=== PATIENT | female | born 1985 | race American Indian/Alaskan Native ===

== ENCOUNTER 2016-07-22 11:21 | Emergency (ER) | payer MEDICAID, OTHER ==
[2016-07-22 13:12] LABS: Basophils % (Auto) 0.2 % (0.0-1.8); Eosinophils % (Auto) 0.2 % (0.0-4.3); Hematocrit 40.7 % (30.3-42.9); Hemoglobin 12.7 gm/dl (10.1-14.3); Mean Corpuscular HGB Conc 31 % (30-34); Mean Corpuscular Hemoglobin 28 pg (28-32); Mean Corpuscular Volume 89 fl (79-97); Platelet Count 227 K/mm3 (140-440); Red Blood Count 4.58 M/mm3 (3.65-5.03); Red Cell Distribution Width 17.5 % (13.2-15.2); White Blood Count 15.1 K/mm3 (4.5-11.0)
[2016-07-22 13:15] LABS: Bilirubin,Urine NEG (Negative); Blood,Urine NEG (Negative); Ketones,Urine 80 mg/dL (Negative); Leukocyte Esterase,Urine NEG (Negative); Mucus,Urine 2+ /HPF; Nitrite,Urine NEG (Negative); Urobilinogen,Urine < 2.0 mg/dL (<2.0)
[2016-07-22 13:20] LABS: Amylase 42 units/L (27-131); Lipase 19 units/L (13-60)
[2016-07-22 13:23] LABS: Anion Gap 21 mmol/L; Blood Urea Nitrogen 9 mg/dL (7-17); Calcium 9.3 mg/dL (8.4-10.2); Carbon Dioxide 22 mmol/L (22-30); Chloride 97.8 mmol/L (98-107); Creatine Kinase 77 units/L (30-135); Glucose 79 mg/dL (65-100); Potassium 4.4 mmol/L (3.6-5.0); Sodium 136 mmol/L (137-145)
[2016-07-22 13:27] LABS: Creatine Kinase MB < 1.0 ng/mL (0.0-4.0)
--- NOTE | 2016-07-22 14:06 | XRay Report ---
ROUTINE CHEST, TWO VIEWS: HISTORY: chest pain. The trachea, heart, mediastinal contour, lung anderson and bony thorax are unremarkable. IMPRESSION: Unremarkable chest x-ray.
[2016-07-22 17:05] LABS: Alanine Aminotransferase 5 units/L (7-56); Albumin 4.3 g/dL (3.9-5); Albumin/Globulin Ratio 1.1 %; Alkaline Phosphatase 87 units/L (35-129); Bilirubin,Total 0.5 mg/dL (0.1-1.2); Total Protein 8.2 g/dL (6.3-8.2)
[2016-07-22 17:11] LABS: Bilirubin,Direct < 0.2 mg/dL (0-0.2); Bilirubin,Indirect 0.3 mg/dL
[2016-07-22] MEDS ORDERED: NACL ONE (18:08)
[2016-07-22] MEDS ORDERED: ZOFRAN IV ONE (18:16)
[2016-07-22] MEDS ORDERED: MORPHINE IV ONE ×2 (18:16→19:29)
[2016-07-22] MEDS ORDERED: TORADOL IV ONE (18:16)
--- NOTE | 2016-07-22 18:26 | Emergency Department Report ---
ED Chest Pain HPI - General Chief Complaint: Chest Pain Stated Complaint: ABD PAIN Time Seen by Provider: 07/22/16 18:15 Source: patient Mode of arrival: Ambulatory Limitations: No Limitations - History of Present Illness Initial Comments: 31-year-old female with no past medical history present to the hospital complaining of right upper quadrant and right-sided lower chest pain since last night. Pain is constant, sharp, and rated 10/10 in intensity. Worse with palpation, movement, and deep inspiration. Patient also complains of a constant nagging pain to her right shoulder. Positive dyspnea on exertion. Patient denies nausea, vomiting, diarrhea, or diaphoresis. She denies other PE risk factors including recent travel, calf tenderness, history of PE/DVT, or control pill use. Patient also denies cough and cold/infectious symptoms. Severity scale (0 -10): 10 - Related Data Home Medications Medication Instructions Recorded Confirmed Last Taken Vit-Fe Fumar-FA [ 1 tab PO QDAY 03/17/16 04/05/16 3 Days Ago Vitamin] 1 TAB Previous Rx's Medication Instructions Recorded Last Taken Type Docusate Sodium [Colace] 100 mg PO BID PRN #60 capsule 04/07/16 Unknown Rx Ferrous Sulfate [Feosol 325 MG tab] 325 mg PO BID #60 tablet 04/07/16 Unknown Rx Allergies Allergy/AdvReac Type Severity Reaction Status Date / Time No Known Allergies Allergy Verified 03/17/16 19:47 VIN score - Vin Score Age > 65: (0) No Aspirin use within the Past 7 Days: (0) No 3 or more CAD Risk Factors: (0) No 2 or more Angina events in past 24 hrs: (0) No Known CAD with more than 50% Stenosis: (0) No Elevated Cardiac Markers: (0) No ST Deviation Greater than 0.5mm: (0) No VIN Score: 0 ED Review of Systems ROS: Stated complaint: ABD PAIN Other details as noted in HPI Comment: All other systems reviewed and negative Other: Constitutional: No fevers chills Eyes: No eye pain visual changes or discharge ENT: No ear pain or throat pain Neck: Denies pain Respiratory: As per HPI Cardiovascular: As per HPI GI: Denies nausea, vomiting, diarrhea, constipation, melena hematochezia : Denies dysuria Musculoskeletal: Denies back pain, joint swelling Skin: Denies rash, lesions, erythema Neurologic: Denies headache, numbness, weakness Psychiatric: Denies suicidal ideation, hallucinations ED Past Medical Hx - Past Medical History Hx Hypertension: No Hx Congestive Heart Failure: No Hx Diabetes: No Hx Deep Vein Thrombosis: No Hx Renal Disease: No Hx Sickle Cell Disease: No Hx Seizures: No Hx Asthma: No Hx COPD: No Hx HIV: No - Surgical History Past Surgical History?: No - Social History Smoking Status: Current Every Day Smoker Substance Use Type: None - Medications Home Medications: Home Medications Medication Instructions Recorded Confirmed Last Taken Type Vit-Fe Fumar-FA [ 1 tab PO QDAY 03/17/16 04/05/16 3 Days Ago History Vitamin] 1 TAB Docusate Sodium [Colace] 100 mg PO BID PRN #60 capsule 04/07/16 Unknown Rx Ferrous Sulfate [Feosol 325 MG tab] 325 mg PO BID #60 tablet 04/07/16 Unknown Rx ED Physical Exam - General Limitations: No Limitations - Other Other exam information: General: No limitations, patient is alert in no acute distress Head exam: Atraumatic, normocephalic Eyes exam: Normal appearance ENT: Moist mucous membrane Neck exam: Normal inspection, full range of motion Respiratory exam: Clear to auscultation bilateral, no wheezes, rales, crackles Cardiovascular: Normal rate and rhythm, normal heart sounds, lower right anterior ribs tenderness Abdomen: Soft, nondistended, and right upper quadrant tenderness, with normal bowel sounds, no rebound, or guarding Extremity: Full range of motion normal inspection no deformity, no calf tenderness or Back: Normal Inspection, full range of motion, no tenderness Neurologic: Alert, oriented x3, cranial nerves intact, no motor or sensory deficit Psychiatric: normal affect, normal mood Skin: Warm, dry, intact ED Course Vital Signs 07/22/16 07/22/16 07/22/16 12:31 17:30 18:40 Temperature 98.7 F 99.2 F Pulse Rate 82 83 Respiratory 18 16 22 Rate Blood Pressure 100/63 109/67 Blood Pressure [Left] O2 Sat by Pulse 100 100 Oximetry 07/22/16 19:30 Temperature 98.4 F Pulse Rate 72 Respiratory 16 Rate Blood Pressure Blood Pressure 104/31 [Left] O2 Sat by Pulse 100 Oximetry - Reevaluation(s) Reevaluation #1: 07/22/16 22:41 I was informed that patient left the department and did not return. I called patient at this time to inform her by her CAT scan results and the need to follow-up for her pulmonary nodules. Also informed her that I had an ultrasound ordered to rule out gallstones given the location of her pain. When I initially saw the patient she was upset due to the long wait. I explained to her that I plan on getting a CAT scan since her d-dimer is elevated to rule out a PE but if negative plan on getting a gallbladder ultrasound due to the location of her pain. Patient was medicated with morphine, Toradol, and Zofran and states she had improvement in symptoms. I did not get to rediscuss her diagnosis and plan prior to leaving the department and she did not that the nurse or the staff know that she was leaving. When I called patient back she was upset due to the long wait and prolonged ED stay and that she is still in pain and we didn't tell her what was wrong with her. She plans to call administration. I told patient that I did not get to finish my ER evaluation and I let her know her CT showed a nodule and she will need outpatient follow- up. I also informed her that she had a pending ultrasound and that I would have managed her with more medications for pain if needed and send her home on pain medication but she left the department without informing anyone. I also informed her that she will likely need her gallbladder evaluated as well she is welcome to return for further evaluation. Then I could not hear the patient on the phone anymore so then I attempted to call back. She would not answer the phone upon call back. 07/22/16 22:44 ED Medical Decision Making - Lab Data Result diagrams: 07/22/16 12:42 07/22/16 12:42 Lab Results 07/22/16 07/22/16 07/22/16 Range/Units 12:42 12:42 12:42 WBC 15.1 H (4.5-11.0) K/mm3 RBC 4.58 (3.65-5.03) M/mm3 Hgb 12.7 (10.1-14.3) gm/dl Hct 40.7 (30.3-42.9) % MCV 89 (79-97) fl MCH 28 (28-32) pg MCHC 31 (30-34) % RDW 17.5 H (13.2-15.2) % Plt Count 227 (140-440) K/mm3 Lymph % (Auto) 11.1 L (13.4-35.0) % [place] % (Auto) 7.8 H (0.0-7.3) % Eos % (Auto) 0.2 (0.0-4.3) % Baso % (Auto) 0.2 (0.0-1.8) % Lymph # 1.7 (1.2-5.4) K/mm3 [place] # 1.2 H (0.0-0.8) K/mm3 Eos # 0.0 (0.0-0.4) K/mm3 Baso # 0.0 (0.0-0.1) K/mm3 Seg Neutrophils % 80.7 H (40.0-70.0) % Seg Neutrophils # 12.2 H (1.8-7.7) K/mm3 D-Dimer (0-234) ng/mlDDU Sodium 136 L (137-145) mmol/L Potassium 4.4 (3.6-5.0) mmol/L Chloride 97.8 L (98-107) mmol/L Carbon Dioxide 22 (22-30) mmol/L Anion Gap 21 mmol/L BUN 9 (7-17) mg/dL Creatinine 0.6 L (0.7-1.2) mg/dL Estimated GFR > 60 ml/min BUN/Creatinine Ratio 15.00 % Glucose 79 (65-100) mg/dL Calcium 9.3 (8.4-10.2) mg/dL Total Bilirubin (0.1-1.2) mg/dL Direct Bilirubin (0-0.2) mg/dL Indirect Bilirubin mg/dL AST (5-40) units/L ALT (7-56) units/L Alkaline Phosphatase (35-129) units/L Total Creatine Kinase 77 (30-135) units/L CK-MB (CK-2) < 1.0 (0.0-4.0) ng/mL CK-MB (CK-2) Rel Index 1.2 (0-4) Troponin T < 0.010 (0.00-0.029) ng/mL Total Protein (6.3-8.2) g/dL Albumin (3.9-5) g/dL Albumin/Globulin Ratio % Amylase 42 (27-131) units/L Lipase 19 (13-60) units/L Urine Color (Yellow) Urine Turbidity (Clear) Urine pH (5.0-7.0) Ur Specific [place] (1.003-1.030) Urine Protein (Negative) mg/dL Urine Glucose (UA) (Negative) mg/dL Urine Ketones (Negative) mg/dL Urine Blood (Negative) Urine Nitrite (Negative) Ur Reducing Substances Urine Bilirubin (Negative) Urine Ictotest Urine Urobilinogen (<2.0) mg/dL Ur Leukocyte Esterase (Negative) Urine WBC (Auto) (0.0-6.0) /HPF Urine RBC (Auto) (0.0-6.0) /HPF U Epithel Cells (Auto) (0-13.0) /HPF Urine Mucus /HPF Urine HCG, Qual (Negative) 07/22/16 07/22/16 07/22/16 Range/Units 12:42 16:42 Unknown WBC (4.5-11.0) K/mm3 RBC (3.65-5.03) M/mm3 Hgb (10.1-14.3) gm/dl Hct (30.3-42.9) % MCV (79-97) fl MCH (28-32) pg MCHC (30-34) % RDW (13.2-15.2) % Plt Count (140-440) K/mm3 Lymph % (Auto) (13.4-35.0) % [place] % (Auto) (0.0-7.3) % Eos % (Auto) (0.0-4.3) % Baso % (Auto) (0.0-1.8) % Lymph # (1.2-5.4) K/mm3 [place] # (0.0-0.8) K/mm3 Eos # (0.0-0.4) K/mm3 Baso # (0.0-0.1) K/mm3 Seg Neutrophils % (40.0-70.0) % Seg Neutrophils # (1.8-7.7) K/mm3 D-Dimer 1264.75 H (0-234) ng/mlDDU Sodium (137-145) mmol/L Potassium (3.6-5.0) mmol/L Chloride (98-107) mmol/L Carbon Dioxide (22-30) mmol/L Anion Gap mmol/L BUN (7-17) mg/dL Creatinine (0.7-1.2) mg/dL Estimated GFR ml/min BUN/Creatinine Ratio % Glucose (65-100) mg/dL Calcium (8.4-10.2) mg/dL Total Bilirubin 0.5 (0.1-1.2) mg/dL Direct Bilirubin < 0.2 (0-0.2) mg/dL Indirect Bilirubin 0.3 mg/dL AST 16 (5-40) units/L ALT 5 L (7-56) units/L Alkaline Phosphatase 87 (35-129) units/L Total Creatine Kinase (30-135) units/L CK-MB (CK-2) (0.0-4.0) ng/mL CK-MB (CK-2) Rel Index (0-4) Troponin T (0.00-0.029) ng/mL Total Protein 8.2 (6.3-8.2) g/dL Albumin 4.3 (3.9-5) g/dL Albumin/Globulin Ratio 1.1 % Amylase (27-131) units/L Lipase (13-60) units/L Urine Color Yellow (Yellow) Urine Turbidity Clear (Clear) Urine pH 5.0 (5.0-7.0) Ur Specific [place] 1.027 (1.003-1.030) Urine Protein 30 mg/dl (Negative) mg/dL Urine Glucose (UA) Neg (Negative) mg/dL Urine Ketones 80 (Negative) mg/dL Urine Blood Neg (Negative) Urine Nitrite Neg (Negative) Ur Reducing Substances Not Reportable Urine Bilirubin Neg (Negative) Urine Ictotest Not Reportable Urine Urobilinogen < 2.0 (<2.0) mg/dL Ur Leukocyte Esterase Neg (Negative) Urine WBC (Auto) 1.0 (0.0-6.0) /HPF Urine RBC (Auto) 1.0 (0.0-6.0) /HPF U Epithel Cells (Auto) 3.0 (0-13.0) /HPF Urine Mucus 2+ /HPF Urine HCG, Qual Negative (Negative) - EKG Data -: EKG Interpreted by Me (nsr 75 lae, no stemi) - Radiology Data Radiology results: report reviewed (past with 2 tiny noncalcified nodules in the right lower lobe need follow-up. Scarring or atelectasis likely in the right upper lobe.), image reviewed (cxr: naf) - Medical Decision Making I was informed that patient left the department and did not return. I called patient at this time to inform her by her CAT scan results and the need to follow-up for her pulmonary nodules. Also informed her that I had an ultrasound ordered to rule out gallstones given the location of her pain. When I initially saw the patient she was upset due to the long wait. I explained to her that I plan on getting a CAT scan since her d-dimer is elevated to rule out a PE but if negative plan on getting a gallbladder ultrasound due to the location of her pain. Patient was medicated with morphine, Toradol, and Zofran and states she had improvement in symptoms. I did not get to rediscuss her diagnosis and plan prior to leaving the department and she did not that the nurse or the staff know that she was leaving. When I called patient back she was upset due to the long wait and prolonged ED stay and that she is still in pain and we didn't tell her what was wrong with her. She plans to call administration. I told patient that I did not get to finish my ER evaluation and I let her know her CT showed a nodule and she will need outpatient follow- up. I also informed her that she had a pending ultrasound and that I would have managed her with more medications for pain if needed and send her home on pain medication but she left the department without informing anyone. I also informed her that she will likely need her gallbladder evaluated as well she is welcome to return for further evaluation. Then I could not hear the patient on the phone anymore so then I attempted to call back. She would not answer the phone upon call back. - Differential Diagnosis biliary colic, pleurisy, effusion, infiltrate, pneumothorax, PE, rib strain Critical Care Time: No Critical care attestation.: If time is entered above; I have spent that time in minutes in the direct care of this critically ill patient, excluding procedure time. ED Disposition Clinical Impression: RUQ pain, Pulmonary nodule, Right-sided chest wall pain Disposition: ELOPED Is pt being admited?: No Condition: Stable Instructions: Chest Pain (ED) Time of Disposition: 22:47
--- NOTE | 2016-07-22 19:22 | Admit Criteria Form ---
Admission Criteria Documentation: GALLBLADDER OR BILE DUCT INFLAMMATION OR STONE Clinical Indications for Admission to Inpatient Care ( Place 'X' for any and all applicable criteria): Admission is indicated for patients with ANY ONE of the following(1)(2)(3)(4)(5) : [ ]I. Acute cholecystitis as indicated by ALL of the following: [ ]a) Right upper quadrant pain, mass, or tenderness [ ]b) Systemic signs of inflammation indicated by ANY ONE of the following: [ ]i) Fever [ ]ii) C-reactive protein level greater than 10 mg/L (95 nmol/L) [ ]iii) White blood cell count greater than 10,000/mm3 (10 x109/L) or less than 4000/mm3 (4 x109/L) [X]II. Inpatient admission required rather than observation care (Also use Gallbladder or Bile Duct Inflammation or Stone: Observation Care as appropriate) because of ANY ONE of the following: [ ]a) Common bile duct obstruction diagnosed [ ]b) Vomiting that is severe or persistent [X]c) Severe pain requiring acute inpatient management [ ]d) Signs of intestinal obstruction or peritonitis [A] [ ]e) Severe electrolyte abnormalities requiring inpatient care [ ]f) Absent bowel sounds with complete ileus(8) [ ]g) Hemodynamic instability [ ]h) High fever or infection requiring inpatient admission as indicated by ANY ONE of the following (9): [ ]1) Appropriate outpatient or observation care antimicrobial Treatment. unavailable, not effective, or not feasible [ ]2) Temperature greater than 104.9 degrees F (40.5 degrees C) (oral) [ ]3) Temperature greater than 103.1 degrees F (39.5 degrees C) (oral) or less than 96.8 degrees F (36 degrees C) (rectal) that does not respond to all emergency treatment measures [ ]4) Documented bacteremia [ ]i) IV fluid to replace significant ongoing losses (greater than 3 L/m2 per day) [ ]j) Percutaneous or open drainage (eg, abscess, biliary tract) procedures [ ]k) Immediate inpatient surgery [X]l) Other condition, treatment or monitoring requiring inpatient admission [ ]III. Acute cholangitis as indicated by ALL of the following(9)(10): [ ]a) Systemic signs of inflammation indicated by ANY ONE of the following: [ ]i) Fever [ ]ii) C-reactive protein level greater than 10 mg/L (95 nmol /L) [ ]iii) White blood cell count greater than 10,000/mm3 (10 x109/L) or less than 4000/mm3 (4 x109/L) [ ]b) Evidence of common bile duct disease indicated by ANY ONE of the following: [ ]i) Total serum bilirubin level greater than or equal to 2 mg/dL (34 micromoles/L) [ ]ii) Liver function test (alkaline phosphatase (ALP), r- glutamyltransferase (GGT), aspartate aminotransferase (AST), or alanine aminotransferase (ALT)) greater than 1.5 times the upper limit of normal[B] [ ]iii) Hepatobiliary imaging showing biliary dilatation or evidence of etiology (eg, stricture, stone, previously placed stent) Extended stay beyond goal length of stay may be needed for (1)(2)): [ ]a) Bacteremia or Hemodynamic instability [ ]b) Cholecystectomy [ ]c) Other surgical procedure(24) [ ]d) Percutaneous or endoscopic ultrasound-guided cholecystostomy The original [facility] [employer] content created by [facility] [employer] and [employer] has been revised. The portions of the content which have been revised are identified through the use of italic text or in bold, and [facility] has neither reviewed nor approved the modified material. All other unmodified content is copyright [facility]. Please see references footnoted in the original [facility] edition 2016
[2016-07-22 20:01] VITALS: BP 104/31
--- NOTE | 2016-07-22 21:07 | Cat Scan Report ---
FINAL REPORT PROCEDURE: CT ANGIO CHEST TECHNIQUE: Computerized tomographic angiography of the chest was performed after the IV injection of iodinated nonionic contrast including image processing. The image data was postprocessed using 2-dimensional multiplanar reformatted (MPR) and 3-dimensional (MIP and/or volume rendered) techniques. HISTORY: elevated ddimer, R lower thoracic pain COMPARISON: No prior studies are available for comparison. FINDINGS: Tiny focus of scarring or atelectasis is seen in the right upper lobe of the lungs anteriorly. No pneumothorax or pleural effusion is seen. No tiny subpleural density in the right lower lobe dependently is likely mild atelectasis but could be a 3 millimeter nodule. 3 millimeter nodule is seen in the right lower lobe on image 60 of series 3, also. Normal residual thymic tissue is seen in the anterior mediastinum. No mediastinal lymphadenopathy is seen. Heart and thoracic aorta are normal in size. No evidence of aortic dissection is seen. No pulmonary embolus is seen. IMPRESSION: No pulmonary embolus is seen. Possible 2 tiny noncalcified nodules are seen in the right lower lobe of the lungs with likely small focus of scarring or atelectasis in the right upper lobe. Guidelines by the Fleischner Society (Radiology 2005: 237:395-400) suggest that patients with a low risk for lung cancer and pulmonary nodules less than or equal to 4 mm in diameter require no follow-up. In patients at higher risk, (e.g., smokers), follow-up CT is recommended in one year. Patients known to have or suspected of having malignant disease should receive more frequent follow-up CT examinations.
== END 2016-07-22 22:27 | disposition left against medical advice (07) ==
LOC: ED 11:21
DX: R91.1 Solitary pulmonary nodule (principal); R10.11 Right upper quadrant pain; R07.89 Other chest pain; F17.200 Nicotine dependence, unspecified, uncomplicated
CPT/HCPCS: 36415; 71020; 71275; 80048; 80074; 81001; 81025; 82150; 82550; 82553; 83690; 84484; 85025; 85379; 93005; 93010; 96374; 96375; 96376; 99284; J1885; J2270; J2405; Q9967

== ENCOUNTER 2016-07-30 08:20 | Emergency (ER) | payer SELFPAY ==
[2016-07-30 13:19] LABS: Basophils % (Auto) 0.9 % (0.0-1.8); Eosinophils % (Auto) 3.7 % (0.0-4.3); Hemoglobin 11.3 gm/dl (10.1-14.3); Mean Corpuscular HGB Conc 33 % (30-34); Mean Corpuscular Hemoglobin 29 pg (28-32); Mean Corpuscular Volume 87 fl (79-97); Platelet Count 291 K/mm3 (140-440); Red Blood Count 3.89 M/mm3 (3.65-5.03); Red Cell Distribution Width 16.9 % (13.2-15.2)
[2016-07-30 13:39] LABS: Albumin 3.4 g/dL (3.9-5); Albumin/Globulin Ratio 0.9 %; Alkaline Phosphatase 78 units/L (35-129); Anion Gap 19 mmol/L; Bilirubin,Total < 0.2 mg/dL (0.1-1.2); Blood Urea Nitrogen 9 mg/dL (7-17); Calcium 8.7 mg/dL (8.4-10.2); Carbon Dioxide 22 mmol/L (22-30); Chloride 102.4 mmol/L (98-107); Glucose 97 mg/dL (65-100); Potassium 4.2 mmol/L (3.6-5.0); Sodium 139 mmol/L (137-145); Total Protein 7.2 g/dL (6.3-8.2)
[2016-07-30 13:42] LABS: Alanine Aminotransferase < 5 units/L (7-56)
--- NOTE | 2016-07-30 14:21 | Emergency Department Report ---
HPI - General Chief Complaint: Abdominal Pain Time Seen by Provider: 07/30/16 12:59 - HPI HPI: Chief complaint: Right upper quadrant pain HPI: Patient complains of right upper quadrant pain 1 week. Patient was here one week ago had a negative CTA of the chest. Patient left prior to her workup being finished and has returned because of continued pain. Patient denies nausea, vomiting or diarrhea. Patient denies fever, chest pain, cough or shortness of breath. Patient states the pain is worse with deep inspiration movement and palpation. Patient states in the past she's had a negative HIV test and has lost a slight bit of weight in the last week or 2. Mode of arrival: EMS Source: Patient old chart Began: 7-8 days Duration: Continuous Context: Denies previous surgery to her abdomen Quality: Sharp Severity: 10 out of 10 Improved with: Nothing Worsened with: See above Associated signs and symptoms: See above ED Past Medical Hx - Social History Smoking Status: Current Every Day Smoker Substance Use Type: None - Medications Home Medications: Home Medications Medication Instructions Recorded Confirmed Last Taken Type Vit-Fe Fumar-FA [ 1 tab PO QDAY 03/17/16 04/05/16 3 Days Ago History Vitamin] 1 TAB Docusate Sodium [Colace] 100 mg PO BID PRN #60 capsule 04/07/16 Unknown Rx Ferrous Sulfate [Feosol 325 MG tab] 325 mg PO BID #60 tablet 04/07/16 Unknown Rx Omeprazole Magnesium [PriLOSEC Otc] 20 mg PO QDAY #10 tablet. 07/30/16 Unknown Rx traMADol [Ultram 50 MG tab] 50 mg PO Q6HR PRN #20 tablet 07/30/16 Unknown Rx ED Review of Systems ROS: Stated complaint: RT SIDE PAIN Other details as noted in HPI ROS Constitutional: No fever ENT: No uri symptoms Cardiovascular: No chest pain Respiratory: No sob or cough GI: No nausea vomiting or diarrhea : No dysuria frequency or urgency, Skin: No rash Neuro: No focal weakness or numbness Psych: No depression Vin/lymph: No edema Physical Exam - Physical Exam Vital Signs: Vital Signs 07/30/16 09:12 Temperature 98.1 F Pulse Rate 62 Respiratory 18 Rate Blood Pressure 104/63 O2 Sat by Pulse 100 Oximetry Physical Exam: GENERAL: The patient is well-developed well-nourished . HEENT: Normocephalic. Atraumatic. Extraocular motions are intact. Patient has moist mucous membranes. NECK: Supple. No meningitic signs are noted. There is no adenopathy noted. CHEST/LUNGS: Clear to auscultation. There is no respiratory distress noted. HEART/CARDIOVASCULAR: Regular. There is no tachycardia. There is no gallop rub or murmur. ABDOMEN: Abdomen is soft, right upper quadrant tenderness. Voluntary guarding. Patient has normal bowel sounds. There is no abdominal distention. SKIN: There is no rash. There is no edema. There is no diaphoresis. NEURO: The patient is awake, alert, and oriented. The patient is cooperative. The patient has no focal neurologic deficits. The patient has normal speech. MUSCULOSKELETAL: There is no tenderness or deformity. There is no limitation range of motion. There is no evidence of acute injury. ED Course Vital Signs 07/30/16 09:12 Temperature 98.1 F Pulse Rate 62 Respiratory 18 Rate Blood Pressure 104/63 O2 Sat by Pulse 100 Oximetry - Reevaluation(s) Reevaluation #1: 07/30/16 15:25 Patient given 40 mg of by mouth protonix. ED Medical Decision Making - Lab Data Result diagrams: 07/30/16 13:06 07/30/16 13:06 - Radiology Data Radiology results: report reviewed (gallbladder ultrasound within normal limits. ) Critical care attestation.: If time is entered above; I have spent that time in minutes in the direct care of this critically ill patient, excluding procedure time. ED Disposition Clinical Impression: RUQ pain Disposition: DISCHARGED TO HOME OR SELFCARE Is pt being admited?: No Does the pt Need Aspirin: No Condition: Stable Instructions: Abdominal Pain (ED), How to Stop Smoking (ED) Prescriptions: Omeprazole Magnesium [PriLOSEC Otc] 20 mg PO QDAY #10 tablet. traMADol [Ultram 50 MG tab] 50 mg PO Q6HR PRN #20 tablet PRN Reason: Pain Referrals: PRIMARY CARE, [Primary Care Provider] - 3-5 Days [facility] [Provider Group] - 3-5 Days Time of Disposition: 15:25
--- NOTE | 2016-07-30 14:39 | Ultrasound Report ---
ULTRASOUND ABDOMEN LIMITED INDICATION: Right upper quadrant pain. COMPARISON: None similar. FINDINGS: Right upper quadrant ultrasound demonstrates normal hepatic contours and echotexture, though left hepatic lobe tip noted extending well into the left upper quadrant and wrapping around the spleen on recent 07/22/[address] images. No gallstones or pericholecystic fluid, though gallbladder suboptimally distended (patient drank coffee 30 minutes prior to exam). Gallbladder wall thickness slightly exaggerated at 3 mm. Negative sonographic Newman's sign. Common bile duct is 2 mm. Imaged pancreas, nonaneurysmal abdominal aorta, IVC and right kidney appear within normal limits. CONCLUSION: No acute right upper quadrant sonographic abnormality with few incidental findings, as above. Please correlate. Thank you for the opportunity to participate in this patient's care.
[2016-07-30] MEDS ORDERED: PROTONIX PO ONE ×2 (15:18→15:20)
[2016-07-30 15:31] VITALS: BP 103/52
== END 2016-07-30 15:32 | disposition home or self-care (01) ==
LOC: ED 08:20
DX: R10.11 Right upper quadrant pain (principal); F17.200 Nicotine dependence, unspecified, uncomplicated
CPT/HCPCS: 36415; 76705; 80053; 85025

== ENCOUNTER 2017-08-10 04:44 | Outpatient (CLI) | payer MEDICAID ==
[2017-08-10] MEDS ORDERED: LACTATED RINGERS 500 ML IV ONE (04:46)
[2017-08-10 05:52] LABS: Basophils # (Auto) 0.1 K/mm3 (0.0-0.1); Basophils % (Auto) 0.7 % (0.0-1.8); Eosinophils # (Auto) 0.2 K/mm3 (0.0-0.4); Hematocrit 30.7 % (30.3-42.9); Hemoglobin 10.2 gm/dl (10.1-14.3); Lymphocytes # (Auto) 2.5 K/mm3 (1.2-5.4); Lymphocytes % (Auto) 24.5 % (13.4-35.0); Mean Corpuscular HGB Conc 33 % (30-34); Mean Corpuscular Hemoglobin 31 pg (28-32); Mean Corpuscular Volume 94 fl (79-97); Monocytes # (Auto) 0.8 K/mm3 (0.0-0.8); Monocytes % (Auto) 8.1 % (0.0-7.3); Platelet Count 147 K/mm3 (140-440); Red Blood Count 3.28 M/mm3 (3.65-5.03); Red Cell Distribution Width 14.3 % (13.2-15.2)
[2017-08-10 06:01] LABS: Amorphous Crystals,Urine Few; Bacteria,Urine 1+ /HPF (Negative); Bilirubin,Urine NEG (Negative); Blood,Urine NEG (Negative); Color,Urine Yellow (Yellow); Mucus,Urine FEW /HPF; Protein,Urine <15 mg/dL mg/dL (Negative); Urobilinogen,Urine < 2.0 mg/dL (<2.0)
[2017-08-10] MEDS ORDERED: BRETHINE SUB-Q ONE (06:02)
[2017-08-10 06:09] LABS: Amphetamine Screen,Urine PRESUMPTIVE NEGATIVE; Benzodiazepines Screen,Urine PRESUMPTIVE NEGATIVE; Cocaine Screen,Urine PRESUMPTIVE NEGATIVE; Methadone Screen,Urine PRESUMPTIVE NEGATIVE; Opiate Screen,Urine PRESUMPTIVE NEGATIVE
--- NOTE | 2017-08-10 06:09 | Event Note ---
Date: 08/10/17 (called by rehabilitation technician that pt is having rectal presure) Pt presented this morning with c/o ctx that started during the night. fFN done. SVE Closed, 70% OOP to the posterior. [facility] provided pt with a copy of the order and their phone number. FHT Cat 1 CTX appear to be spacing out with fluid and a single hopkins of Terb. Will continue to monitor, waiting results of UA and labs. Pt instructed to be on complete pelvic rest, hydration and OOW until her next office visit. Will consult with labs and final disposition.
[2017-08-10 06:10] VITALS: BP 103/57
[2017-08-10 06:39] LABS: Cannabinoid Screen,Urine PRESUMPTIVE POSITIVE
== END 2017-08-10 07:06 | disposition home or self-care (01) ==
LOC: TRG 04:44
PROVIDERS: ATTEND Obstetrics & Gynecology
DX: O62.9 Abnormality of forces of labor, unspecified (principal); O47.02 False labor before 37 completed weeks of gestation, second trimester; Z3A.25 25 weeks gestation of pregnancy
CPT/HCPCS: 36415; 80307; 81001; 82731; 85025; 86592; 86850; 86900; 86901; J3105; J7120

== ENCOUNTER 2017-09-18 18:36 | Inpatient (IN) | payer MEDICAID ==
[2017-09-18 19:44] LABS: Bilirubin,Urine NEG (Negative); Blood,Urine NEG (Negative); Color,Urine Yellow (Yellow); Urobilinogen,Urine < 2.0 mg/dL (<2.0)
--- NOTE | 2017-09-18 20:53 | History and Physical Report ---
History of Present Illness Date of examination: 09/18/17 Chief complaint: Complaints labor, states she was evaluated in [facility] on Thursday and was told she was 2cm dilated. Denies leaking or bleeding. +fm History of present illness: Past History : 4 Term Births: 2 Premature Births: 1 Living Children: 3 Para: 3 Mult. Births: 0 Prev : 0 Prev. attempt? 0 Aborta: 0 Elect. Ab: 0 Spont. Ab: 0 Ectopics: 0 # 1 Delivery date: 2005 Weeks Gestation: term labor: no Delivery type: Anesthesia type: epidural Delivery location: [facility] Infant Sex: Male weight: 6#5oz # 2 Delivery date: 204 Weeks Gestation: term labor: no Delivery type: Anesthesia type: epidural Delivery location: [facility] Infant Sex: Male weight: 5#6 # 3 Delivery date: 04/05/2016 Weeks Gestation: 36 Delivery type: Vaginal Anesthesia type: IV medication Delivery location: [facility] Sex: female weight: 4.69 Name: Nicolle Comments: labor, rupture of membranes Past Medical History: Reviewed history from 10/09/2015 and no changes required: Negative Past Medical History Past Surgical History: Reviewed history from 10/09/2015 and no changes required: negative Leep 2010 - neg bx Past Medical History Abnormal PAP: positive, leep 2010 Social Hx: Patient is single Smoking History: Patient currently smokes every day. Patient has been counseled to quit. No ETOH or drugs Infection History Hx of STD: gonorrhea HIV Risk Eval: no Hepatitis B Risk Eval: low risk Personal hx. of genital herpes: no Partner hx. of genital herpes: no Rash, Viral, or Febrile illness since last LMP? no Varicella/Chicken Pox Status: Previous Disease Genetic History Congenital Heart Defect: Mom: no Dad: no Zina Disease: Mom: no Dad: no Thalassemia Mom: no Dad: no Neural Tube Defect Mom: no Dad: no Down's Syndrome Mom: no Dad: no Phill-Sachs Mom: no Dad: no Sickle Cell Disease/Trait Mom: no Dad: no Hemophilia Mom: no Dad: no Muscular Dystrophy Mom: no Dad: no Cystic Fibrosis Mom: no Dad: no Arion Chorea Mom: no Dad: no Mental Retardation Mom: no Dad: no Fragile X Mom: no Dad: no Other Genetic/Chromosomal Disorder Mom: no Dad: no Child w/other defect Mom: no Dad: no Enviromental Exposures Xray Exposure: no Medication, drug, or alcohol use since LMP: no Chemical/Other Exposure: no Exposure to Cat Liter: no Hx of Parvovirus (Fifth Disease): no Occupational Exposure to Children: none Active Medications (reviewed today): VITAMINS TABLET ( VIT-FE FUMARATE-FA TABS) Current Allergies (reviewed today): No known allergies Past History - Obstetrical History Expected Date of Delivery: 11/18/17 Actual Gestation: 31 Week(s) 2 Day(s) : 4 Medications and Allergies Allergies Allergy/AdvReac Type Severity Reaction Status Date / Time No Known Allergies Allergy Verified 07/30/16 09:12 Home Medications Medication Instructions Recorded Confirmed Last Taken Type Vit-Fe Fumar-FA [ 1 tab PO QDAY 03/17/16 04/05/16 3 Days Ago History Vitamin] ~04/02/16 1 TAB Docusate Sodium [Colace] 100 mg PO BID PRN #60 capsule 04/07/16 Unknown Rx Ferrous Sulfate [Feosol 325 MG tab] 325 mg PO BID #60 tablet 04/07/16 Unknown Rx Omeprazole Magnesium [PriLOSEC Otc] 20 mg PO QDAY #10 tablet. 07/30/16 Unknown Rx traMADol [Ultram 50 MG tab] 50 mg PO Q6HR PRN #20 tablet 07/30/16 Unknown Rx - Vital Signs Vital signs: Vital Signs Pulse BP Pulse Ox 104 H 99/54 100 09/18/17 19:12 09/18/17 19:12 09/18/17 19:12 Temp Pulse Resp BP Pulse Ox 98.0 F 89 18 104/54 100 09/18/17 20:00 09/18/17 20:48 09/18/17 20:00 09/18/17 20:12 09/18/17 20:48 - Physical Exam Breasts: Positive: deferred Cardiovascular: Regular rate Lungs: Positive: Normal air movement Abdomen: Positive: normal appearance, soft. Negative: tenderness Genitourinary (Female): Positive: normal external genitalia, normal perenium Vulva: both: normal Extremities: Positive: normal. Negative: tenderness, edema - Obstetrical FHR: category 1 Uterine Contraction Monitor Mode: External Cervical Dilatation: 2.5 Cervical Effacement Percentage: 50 station: -3 Uterine Contraction Pattern: Irregular Results All other labs normal. Assessment and Plan - Patient Problems (1) 31 weeks gestation of Current Visit: Yes Status: Acute (2) Threatened labor, antepartum Current Visit: Yes Status: Acute Plan to address problem: She was admitted at 33weeks with her previous for PTL, she received steroids and delivered at 36weeks. She has only had 2 visits to the office, her last visit waas 07/2017. She was referred to [facility] for a short cervix of 2.5 at 22weeks. Steroids MgSO4 (3) History of delivery Current Visit: Yes Status: Acute (4) Insufficient care in third trimester Current Visit: Yes Status: Acute
[2017-09-18] MEDS ORDERED: SUDAFED PO PRN (21:02)
[2017-09-18] MEDS ORDERED: ALUM-MAG HYDROX-SIMETH 200-200-20MG/5ML PO PRN (21:02)
[2017-09-18] MEDS ORDERED: ZOFRAN IV PRN (21:02)
[2017-09-18] MEDS ORDERED: COLACE PO PRN (21:02)
[2017-09-18] MEDS ORDERED: TYLENOL PO PRN (21:02)
[2017-09-18] MEDS ORDERED: BENADRYL PO PRN (21:02)
[2017-09-18] MEDS ORDERED: MAGNESIUM SULFATE 4GM/100ML 4 GM/100 ML BAG IV ONE (21:02)
[2017-09-18] MEDS ORDERED: MYLICON PO PRN (21:02)
[2017-09-18] MEDS ORDERED: GUAIFENESIN DM SYRUP PO PRN (21:02)
[2017-09-18] MEDS ORDERED: MILK OF MAGNESIA PO PRN (21:02)
[2017-09-18] MEDS ORDERED: DEEP SEA NS PRN (21:02)
[2017-09-18] MEDS ORDERED: CELESTONE SOLUSPAN IM SCH (21:04)
[2017-09-18] MEDS: LACTATED RINGERS 1,000 ML IV SCH (22:00)
[2017-09-18] MEDS: MAGNESIUM SULFATE 40GM/1000ML 40 GM/1,000 ML BAG IV SCH (23:35)
[2017-09-19 00:39] LABS: Amphetamine Screen,Urine PRESUMPTIVE NEGATIVE; Benzodiazepines Screen,Urine PRESUMPTIVE NEGATIVE; Cannabinoid Screen,Urine PRESUMPTIVE NEGATIVE; Cocaine Screen,Urine PRESUMPTIVE NEGATIVE; Methadone Screen,Urine PRESUMPTIVE NEGATIVE; Opiate Screen,Urine PRESUMPTIVE NEGATIVE
[2017-09-19 01:10] LABS: Hematocrit 30.4 % (30.3-42.9); Hemoglobin 10.1 gm/dl (10.1-14.3); Mean Corpuscular HGB Conc 33 % (30-34); Mean Corpuscular Hemoglobin 30 pg (28-32); Mean Corpuscular Volume 91 fl (79-97); Platelet Count 204 K/mm3 (140-440); Red Blood Count 3.34 M/mm3 (3.65-5.03); Red Cell Distribution Width 14.3 % (13.2-15.2)
[2017-09-19] MEDS: PRENATAL VITAMIN PO SCH (09:56)
--- NOTE | 2017-09-19 11:01 | Progress Note ---
Assessment and Plan - Patient Problems (1) 31 weeks gestation of Current Visit: Yes Status: Acute (2) History of delivery Current Visit: Yes Status: Acute (3) Insufficient care in third trimester Current Visit: Yes Status: Acute (4) Threatened labor, antepartum Current Visit: Yes Status: Acute Plan to address problem: -con't magesium second does due tonight -will d/c if no s/sx of labor after 24hrs after second dose is given -plan of care d/w pt and all questions were addressed and answered. Subjective - Subjective Date of service: 09/19/17 Principal diagnosis: 31.3 wks with PTL Interval history: s/p BMZ time1 does second dose due @ 2245pm. Pt sitting in bed eating regular dier(although it was not ordered) and is tolerating it so will con't at this time. d/w the risk of being on the MgSO4. Pt expressed understanding and all questions were addressed and answered. I d/w that she will be on the magnesium until 24 hrs after the second dose of meds given. Pt expressed understanding. Patient reports: movement normal, no contractions Objective - Vital Signs Vital Signs: Vital Signs - 12hr 09/19/17 09/19/17 09/19/17 07:16 07:19 10:06 Temperature 98.5 F Pulse Rate 82 83 Respiratory 18 Rate Blood Pressure 90/54 94/55 - Exam Cardiovascular: Normal S1, Normal S2 Lungs: Normal air movement Abdomen: Present: normal appearance, soft. Absent: distention, tenderness, guarding FHR: category 1 - Labs Labs: Abnormal Labs 09/18/17 09/19/17 09/19/17 22:00 01:11 06:16 WBC 11.7 H RBC 3.34 L Magnesium 4.20 H 3.90 H Laboratory Results - last 24 hr 09/18/17 09/18/17 09/18/17 19:16 22:00 22:00 WBC 11.7 H RBC 3.34 L Hgb 10.1 Hct 30.4 MCV 91 MCH 30 MCHC 33 RDW 14.3 Plt Count 204 Magnesium Urine Color Yellow Urine Turbidity Clear Urine pH 6.0 Ur Specific [place] 1.019 Urine Protein 30 mg/dl Urine Glucose (UA) 50 Urine Ketones Tr Urine Blood Neg Urine Nitrite Neg Urine Bilirubin Neg Urine Urobilinogen < 2.0 Ur Leukocyte Esterase Sm Urine WBC (Auto) 3.0 Urine RBC (Auto) 3.0 U Epithel Cells (Auto) 3.0 Urine Opiates Screen Urine Methadone Screen Ur Barbiturates Screen Ur Phencyclidine Scrn Ur Amphetamines Screen U Benzodiazepines Scrn Urine Cocaine Screen U Marijuana (THC) Screen Drugs of Abuse Note Blood Type B POSITIVE Antibody Screen Negative 09/18/17 09/19/17 09/19/17 22:33 01:11 06:16 WBC RBC Hgb Hct MCV MCH MCHC RDW Plt Count Magnesium 4.20 H 3.90 H Urine Color Urine Turbidity Urine pH Ur Specific [place] Urine Protein Urine Glucose (UA) Urine Ketones Urine Blood Urine Nitrite Urine Bilirubin Urine Urobilinogen Ur Leukocyte Esterase Urine WBC (Auto) Urine RBC (Auto) U Epithel Cells (Auto) Urine Opiates Screen Presumptive negative Urine Methadone Screen Presumptive negative Ur Barbiturates Screen Presumptive negative Ur Phencyclidine Scrn Presumptive negative Ur Amphetamines Screen Presumptive negative U Benzodiazepines Scrn Presumptive negative Urine Cocaine Screen Presumptive negative U Marijuana (THC) Screen Presumptive negative Drugs of Abuse Note Disclamer Blood Type Antibody Screen
[2017-09-19] MEDS ORDERED: POLYCILLIN/NS 2 GM/100 ML 2 GM/100 ML BAG IV ONE (12:00)
--- NOTE | 2017-09-19 12:17 | Event Note ---
Date: 09/19/17 CALLED BY RN, PT WITH SROM. CX NOTED TO BE UNCHANGED SINCE ADMISSION. ? MEMBRANES PALPATED BUT CLEAR FLUID NOTED ON PADDING AND GLOVE . I D/W STARTING ANITBX BUT THAT THE RISK OF DELIVERY WITHIN THE NEXT 24 TO 48 HRS IS HIGH. NICU CONSULT PLACED AT HIS TIME. PT EXPRESSED UNDERSTANDING AND ALL QUESTIONS WERE ADDRESSED AND ANSWERED. PT HAS H/O 33 WK DELIVERY.
[2017-09-19] MEDS: LACTATED RINGERS 1,000 ML IV SCH ×2 (12:22→23:27)
--- NOTE | 2017-09-19 13:39 | Event Note ---
Date: 09/19/17 Attempted to order the erythromycin IV but it is on back order at the hospital and has been for several months. I was advised by pharmacy to give it po. Will start at this time.
--- NOTE | 2017-09-19 17:48 | Consultation ---
History of Present Illness Consult date: 09/19/17 Requesting physician: NADINE MAC Reason for consult: prematurity History of present illness: 31 weeks with premature rupture of membranes [place] Documentation - Maternal Info Maternal Blood Type: B (+) positive HbsAg: Negative HIV: Negative RPR/VDRL: Non-reactive Group Beta Strep: Unknown Amniotic Membrane Rupture Date: 09/19/17 Amniotic Membrane Rupture Time: 11:20 - information: Height 5 ft 3 in Medications and Allergies Allergies Allergy/AdvReac Type Severity Reaction Status Date / Time No Known Allergies Allergy Verified 07/30/16 09:12 Home Medications Medication Instructions Recorded Confirmed Last Taken Type Vit-Fe Fumar-FA [ 1 tab PO QDAY 03/17/16 04/05/16 3 Days Ago History Vitamin] ~04/02/16 1 TAB Docusate Sodium [Colace] 100 mg PO BID PRN #60 capsule 04/07/16 Unknown Rx Ferrous Sulfate [Feosol 325 MG tab] 325 mg PO BID #60 tablet 04/07/16 Unknown Rx Omeprazole Magnesium [PriLOSEC Otc] 20 mg PO QDAY #10 tablet.dr 07/30/16 Unknown Rx traMADol [Ultram 50 MG tab] 50 mg PO Q6HR PRN #20 tablet 07/30/16 Unknown Rx Active Meds: Active Medications Acetaminophen (Tylenol) 650 mg PO Q6H PRN PRN Reason: Pain MILD(1-3)/Fever >100.5/PHAM Al Hydrox/Mg Hydrox/Simethicone (Alum-Mag Hydrox-Simeth [id number]/5ml) 30 ml PO Q6H PRN PRN Reason: Indigestion Diphenhydramine HCl (Benadryl) 25 mg PO Q6H PRN PRN Reason: Itching Docusate Sodium (Colace) 100 mg PO Q12H PRN PRN Reason: Constipation Erythromycin (Deep-Tab) 250 mg PO Q6HR KHADRA Guaifenesin (Guaifenesin Dm Syrup) 10 ml PO Q6H PRN PRN Reason: Cough Lactated Ringer's (Lactated Ringers) 1,000 mls @ 125 mls/hr IV DIRECT KHADRA Last Admin: 09/19/17 12:22 Dose: 125 mls/hr Magnesium Sulfate (Magnesium Sulfate 40gm/1000ml) 40 gm in 1,000 mls @ 50 mls/ hr IV DIRECT KHADRA Last Admin: 09/18/17 23:35 Dose: 2 gm/hr, 50 mls/hr Ampicillin Sodium (Ampicillin/Ns 1 Gm/50 Ml) 1 gm in 50 mls @ 100 mls/hr IV Q4H KHADRA; Protocol Magnesium Hydroxide (Milk Of Magnesia) 30 ml PO QHS PRN PRN Reason: Laxative Effect Multivitamins/Iron/Calcium ( Vitamin) 1 each PO QDAY KHADRA Last Admin: 09/19/17 09:56 Dose: 1 each Pseudoephedrine HCl (Sudafed) 30 mg PO Q4H PRN PRN Reason: Nasal Congestion Simethicone (Mylicon) 80 mg PO Q6H PRN PRN Reason: Gas pain Sodium Chloride (Deep Sea) 2 spray NS Q4H PRN PRN Reason: Congestion Exam Vital Signs Pulse BP Pulse Ox 104 H 99/54 100 09/18/17 19:12 09/18/17 19:12 09/18/17 19:12 Temp Pulse Resp BP Pulse Ox 97.7 F 93 H 18 104/57 100 09/19/17 15:44 09/19/17 13:54 09/19/17 15:44 09/19/17 13:54 09/18/17 21:03 Results - Laboratory Findings 09/18/17 22:00 Abnormal lab results 09/18/17 09/19/17 09/19/17 Range/Units 22:00 01:11 06:16 WBC 11.7 H (4.5-11.0) K/mm3 RBC 3.34 L (3.65-5.03) M/mm3 Magnesium 4.20 H 3.90 H (1.7-2.3) mg/dL 09/19/17 Range/Units 14:49 WBC (4.5-11.0) K/mm3 RBC (3.65-5.03) M/mm3 Magnesium 5.60 H (1.7-2.3) mg/dL Assessment and Plan I spoke with the OB team requesting the consult. Mother is 32yo with history of delivery - 36 weeks per chart, with history of short cervix, admitted for observation, now with ruptured membranes I explained the need for NICU admission, the possible need for intubation, surfactant, non-invasive ventilation, TPN, NG/OG feeds, UVC and UAC. We discussed to risks of IVH and infection in the NICU. Mother demonstrated understanding of the information presented and I encouraged her to call the NICU with questions. Plan: Agree with steroids MgSO4 and antibiotics Will attend delivery Please call NICU with questions
[2017-09-19] MEDS: AMPICILLIN/NS 1 GM/50 ML 1 GM/50 ML BAG IV SCH ×2 (18:14→23:27)
[2017-09-19] MEDS: MAGNESIUM SULFATE 40GM/1000ML 40 GM/1,000 ML BAG IV SCH (19:20)
[2017-09-19] MEDS ORDERED: CELESTONE SOLUSPAN IM SCH (23:00)
[2017-09-20] MEDS: AMPICILLIN/NS 1 GM/50 ML 1 GM/50 ML BAG IV SCH ×6 (02:46→21:54)
--- NOTE | 2017-09-20 05:52 | Progress Note ---
Assessment and Plan - Patient Problems (1) 31 weeks gestation of Current Visit: Yes Status: Acute (2) History of delivery Current Visit: Yes Status: Acute (3) Insufficient care in third trimester Current Visit: Yes Status: Acute (4) Threatened labor, antepartum Current Visit: Yes Status: Acute (5) premature rupture of membranes (PPROM) with unknown onset of labor Current Visit: Yes Status: Acute Plan to address problem: -no reason to do cx check at this time. no contractions noted on NST -s/p BMZ x2 doses -con't amp IV and Erythromycin(po as IV on back order) -expectant management at this time. Subjective - Subjective Date of service: 09/20/17 Principal diagnosis: 31.4 wks with PTL and PPROM Interval history: Pt s/p second dose of BMZ last pm. Magnesium will con't at this time. Pt currently still having leaking of clear fluid but no s/sx of Chorio. Vtx by my exam on yesterday. Will obtain sono today to check weight. Con't expectant managment. Will deliver for s/sx of chorio. Patient reports: loss of fluid, movement normal, no contractions Objective - Vital Signs Vital Signs: Vital Signs - 12hr 09/19/17 09/19/17 09/20/17 22:40 23:40 00:22 Temperature 98.3 F 97.8 F Pulse Rate 86 Blood Pressure 81/46 O2 Sat by Pulse Oximetry 09/20/17 09/20/17 09/20/17 00:23 00:31 01:06 Temperature Pulse Rate 88 83 82 Blood Pressure 85/49 90/54 O2 Sat by Pulse 99 Oximetry 09/20/17 09/20/17 09/20/17 01:11 01:16 01:21 Temperature Pulse Rate 86 76 79 Blood Pressure O2 Sat by Pulse 100 99 99 Oximetry 09/20/17 09/20/17 09/20/17 01:26 01:31 01:36 Temperature Pulse Rate 80 87 81 Blood Pressure O2 Sat by Pulse 99 99 98 Oximetry 09/20/17 09/20/17 09/20/17 01:41 01:46 01:51 Temperature Pulse Rate 90 78 84 Blood Pressure O2 Sat by Pulse 100 100 100 Oximetry 09/20/17 09/20/17 09/20/17 01:56 02:01 02:06 Temperature Pulse Rate 87 87 90 Blood Pressure O2 Sat by Pulse 100 100 100 Oximetry 09/20/17 09/20/17 09/20/17 02:11 02:16 02:21 Temperature Pulse Rate 85 87 86 Blood Pressure O2 Sat by Pulse 100 100 100 Oximetry 09/20/17 09/20/17 09/20/17 02:26 02:31 02:36 Temperature Pulse Rate 79 91 H 99 H Blood Pressure O2 Sat by Pulse 100 100 99 Oximetry 09/20/17 09/20/17 09/20/17 02:39 02:41 02:46 Temperature Pulse Rate 80 83 81 Blood Pressure 94/55 O2 Sat by Pulse 100 99 Oximetry 09/20/17 09/20/17 09/20/17 02:51 02:56 03:01 Temperature Pulse Rate 79 79 81 Blood Pressure O2 Sat by Pulse 99 99 99 Oximetry 09/20/17 09/20/17 09/20/17 03:06 03:11 03:16 Temperature Pulse Rate 81 82 85 Blood Pressure O2 Sat by Pulse 99 99 98 Oximetry 09/20/17 09/20/17 09/20/17 03:21 03:26 03:31 Temperature Pulse Rate 87 89 89 Blood Pressure O2 Sat by Pulse 98 100 100 Oximetry 09/20/17 09/20/17 09/20/17 03:36 03:41 03:46 Temperature Pulse Rate 82 90 87 Blood Pressure O2 Sat by Pulse 100 100 100 Oximetry 09/20/17 09/20/17 09/20/17 03:51 03:56 04:01 Temperature Pulse Rate 83 86 92 H Blood Pressure O2 Sat by Pulse 100 99 98 Oximetry 09/20/17 09/20/17 09/20/17 04:06 04:11 04:16 Temperature Pulse Rate 91 H 81 90 Blood Pressure O2 Sat by Pulse 100 100 99 Oximetry 09/20/17 09/20/17 09/20/17 04:21 04:26 04:31 Temperature Pulse Rate 85 83 86 Blood Pressure O2 Sat by Pulse 100 100 100 Oximetry 09/20/17 09/20/17 09/20/17 04:36 04:41 04:46 Temperature Pulse Rate 78 83 78 Blood Pressure O2 Sat by Pulse 98 99 99 Oximetry 09/20/17 09/20/17 09/20/17 04:51 04:56 05:01 Temperature Pulse Rate 78 80 80 Blood Pressure O2 Sat by Pulse 99 98 99 Oximetry 09/20/17 09/20/17 09/20/17 05:06 05:11 05:16 Temperature Pulse Rate 82 89 80 Blood Pressure O2 Sat by Pulse 98 99 98 Oximetry 09/20/17 09/20/17 09/20/17 05:21 05:26 05:31 Temperature Pulse Rate 81 80 82 Blood Pressure O2 Sat by Pulse 99 98 99 Oximetry 09/20/17 09/20/17 09/20/17 05:36 05:41 05:46 Temperature Pulse Rate 77 77 82 Blood Pressure O2 Sat by Pulse 100 99 99 Oximetry - Exam FHR: category 1 - Labs Labs: Abnormal Labs 09/18/17 09/19/17 09/19/17 22:00 01:11 06:16 WBC 11.7 H RBC 3.34 L Magnesium 4.20 H 3.90 H 09/19/17 09/19/17 09/20/17 14:49 21:05 03:22 WBC RBC Magnesium 5.60 H 5.60 H 5.60 H Laboratory Results - last 24 hr 09/19/17 09/19/17 09/19/17 06:16 14:49 21:05 Magnesium 3.90 H 5.60 H 5.60 H 09/20/17 03:22 Magnesium 5.60 H
[2017-09-20] MEDS: PRENATAL VITAMIN PO SCH (09:56)
[2017-09-20] MEDS: MAGNESIUM SULFATE 40GM/1000ML 40 GM/1,000 ML BAG IV SCH (13:28)
[2017-09-20] MEDS: ERY-TAB PO SCH ×2 (18:19→23:45)
[2017-09-20] MEDS: LACTATED RINGERS 1,000 ML IV SCH (18:54)
[2017-09-21] MEDS: AMPICILLIN/NS 1 GM/50 ML 1 GM/50 ML BAG IV SCH ×3 (01:54→10:11)
[2017-09-21] MEDS ORDERED: PHENERGAN PO PRN (02:45)
[2017-09-21] MEDS: ERY-TAB PO SCH ×4 (06:12→15:01)
--- NOTE | 2017-09-21 06:17 | Progress Note ---
Assessment and Plan - Patient Problems (1) 31 weeks gestation of Onset Date: ~09/21/17 Current Visit: Yes Status: Acute Plan to address problem: Pt resting on my visit this AM Consulted with concerning MGSO4 will continue for now. Order placed for US EFW and consult with AMFM. VSS afebrile FHR Cat 1 for GA. Occasional ctx recorded Pt denies feeling them. Reports good FM. States she dies feel small amt fluid leak out rarely. Continue orders as noted. IUP @ 31w5d PPROM and PTL No s/sx of chorio @ this time. (2) premature rupture of membranes (PPROM) with unknown onset of labor Onset Date: ~09/21/17 Current Visit: Yes Status: Acute Plan to address problem: Continue PO ABX. AMFM consult and US ordered. Subjective - Subjective Date of service: 09/21/17 (pt denies feeling any ctx; notes small amt fluid out ; "I'm just tired.") Principal diagnosis: 31.5 wks with PTL and PPROM Patient reports: loss of fluid, movement normal, no contractions Objective - Vital Signs Vital Signs: Vital Signs - 12hr 09/20/17 09/20/17 09/20/17 19:34 19:38 21:56 Temperature 98.5 F 98.6 F Pulse Rate 81 81 Respiratory 18 Rate Blood Pressure 102/57 Blood Pressure 102/57 [Left] 09/20/17 09/20/17 09/20/17 22:03 22:11 23:50 Temperature 97.6 F Pulse Rate 74 76 80 Respiratory 18 Rate Blood Pressure 107/56 107/60 Blood Pressure 100/58 [Left] 09/21/17 09/21/17 09/21/17 01:57 02:44 04:25 Temperature 98.7 F 97.7 F 98.1 F Pulse Rate 82 74 Respiratory 18 16 Rate Blood Pressure Blood Pressure 94/55 90/51 [Left] 09/21/17 06:07 Temperature 98.4 F Pulse Rate 71 Respiratory 18 Rate Blood Pressure Blood Pressure 98/55 [Left] - Exam Breasts: deferred Cardiovascular: Regular rate Lungs: Normal air movement Abdomen: Present: normal appearance, soft. Absent: distention, tenderness Uterus: Present: normal FHR: auscultation normal, category 1 Uterine Contraction Monitor Mode: External Uterine Contraction Pattern: Irregular (pt will have occa 70 sec ctx Poss exaggerated due to pt's body habitus(BMI 21)) Uterine Tone Measurement Phase: Resting Extremities: normal Deep Tendon Reflex Grade: Normal +2 - Labs Labs: Abnormal Labs 09/18/17 09/19/17 09/19/17 22:00 01:11 06:16 WBC 11.7 H RBC 3.34 L Magnesium 4.20 H 3.90 H 09/19/17 09/19/17 09/20/17 14:49 21:05 03:22 WBC RBC Magnesium 5.60 H 5.60 H 5.60 H 09/20/17 09/20/17 09/20/17 10:43 15:17 20:32 WBC RBC Magnesium 5.70 H 5.30 H 5.20 H 09/21/17 05:11 WBC RBC Magnesium 5.80 H Laboratory Results - last 24 hr 09/20/17 09/20/17 09/20/17 10:43 15:17 20:32 Magnesium 5.70 H 5.30 H 5.20 H 09/21/17 05:11 Magnesium 5.80 H
[2017-09-21] MEDS ORDERED: MAGNESIUM SULFATE 40GM/1000ML 40 GM/1,000 ML BAG IV SCH (07:00)
--- NOTE | 2017-09-21 07:47 | Ultrasound Report ---
OB ULTRASOUND History insufficient care. Technique: Transabdominal ultrasound with Doppler interrogation. Gestation: Single Position: Cephalic Amniotic Fluid: Normal SUZETTE = 10.1 cm Placenta: Right lateral Placental Grade: 3 Heart Rate: 115 BPM Cervical length: Obscured BPD: 8.2 cm = 33 w 2 d HC: 30.3 cm = 33 w 5 d AC: 28.9 cm = 32 w 6 d FL: 5.9 cm = 30 w 4 d HC/AC Ratio: 1.05 Cephalic Index: 78.4 Estimated Weight: 1942 grams LMP: 02/11/17 Clinical age = 31 w 5 d EDC: 11/18/17 US Gest. Age = 32 w 4 d EDC: 11/12/17 IMPRESSION: Viable, single intrauterine as described.
--- NOTE | 2017-09-21 07:57 | Event Note ---
Date: 09/21/17 (consulted with ) D/C MGSO4 and remove epps. Pt may be OOB for a very short time for AM care. US EFW [id number].
[2017-09-21] MEDS: PRENATAL VITAMIN PO SCH (14:59)
--- NOTE | 2017-09-21 16:13 | Progress Note ---
Assessment and Plan - Patient Problems (1) 31 weeks gestation of Onset Date: ~09/21/17 Current Visit: Yes Status: Acute Plan to address problem: notified of chg in pt's status and cervical chg. NICU notified. Continue expectant mgt. (2) premature rupture of membranes (PPROM) with unknown onset of labor Onset Date: ~09/21/17 Current Visit: Yes Status: Acute Subjective - Subjective Date of service: 09/21/17 (family member came to the desk Stating pt hurting badly) Principal diagnosis: 31.5 wks with PTL and PPROM Patient reports: loss of fluid, movement normal, contractions (increased freq and intensity) Objective - Vital Signs Vital Signs: Vital Signs - 12hr 09/21/17 09/21/17 09/21/17 04:25 06:07 08:06 Temperature 98.1 F 98.4 F 98.0 F Pulse Rate 74 71 Respiratory 16 18 Rate Blood Pressure 90/51 98/55 [Left] - Exam Breasts: deferred Cardiovascular: Regular rate Lungs: Normal air movement Abdomen: Present: normal appearance, soft. Absent: distention, tenderness Uterus: Present: normal FHR: auscultation normal, category 1 Uterine Contraction Monitor Mode: External Cervical Dilatation: 4 Cervical Effacement Percentage: 90 station: 0 Uterine Contraction Pattern: Regular Uterine Tone Measurement Phase: Resting Uterine Contraction Intensity: Moderate Extremities: normal Deep Tendon Reflex Grade: Normal +2 - Labs Labs: Abnormal Labs 09/18/17 09/19/17 09/19/17 22:00 01:11 06:16 WBC 11.7 H RBC 3.34 L Magnesium 4.20 H 3.90 H 09/19/17 09/19/17 09/20/17 14:49 21:05 03:22 WBC RBC Magnesium 5.60 H 5.60 H 5.60 H 09/20/17 09/20/17 09/20/17 10:43 15:17 20:32 WBC RBC Magnesium 5.70 H 5.30 H 5.20 H 09/21/17 05:11 WBC RBC Magnesium 5.80 H Laboratory Results - last 24 hr 09/20/17 09/20/17 09/21/17 15:17 20:32 05:11 Magnesium 5.30 H 5.20 H 5.80 H
[2017-09-21] MEDS ORDERED: SUBLIMAZE IV ONE (16:49)
--- NOTE | 2017-09-21 17:22 | Event Note ---
Date: 09/21/17 (pt called out c/o increased pressure) SVE 6,90,-1 NICU made aware of imminent delivery. Pt declines pain medication at this time.
[2017-09-21] MEDS ORDERED: PITOCin/NS 20 UNIT/1000ML DRIP 20,000 MILLIUNITS/1,000 ML BAG IV ONE (17:58)
[2017-09-21] MEDS ORDERED: MILK OF MAGNESIA PO PRN (20:13)
[2017-09-21] MEDS ORDERED: DERMOPLAST TP PRN (20:13)
[2017-09-21] MEDS ORDERED: TYLENOL PO PRN (20:13)
[2017-09-21] MEDS ORDERED: TUCKS PAD TP PRN (20:13)
[2017-09-21] MEDS ORDERED: LANSINOH TP PRN (20:13)
[2017-09-21] MEDS ORDERED: ZOFRAN IV PRN (20:13)
--- NOTE | 2017-09-21 20:25 | Procedure Note ---
OB Delivery Note - Delivery Date of Delivery: 09/21/17 Logging Specialist: LUCI ORR Estimated blood loss: 200cc - Vaginal Delivery presentation: vertex Delivery position: OA Intrapartum events: labor-<37 weeks, PROM->1hr before delivery Delivery induction: none Delivery monitor: external FHT, external uterine Route of delivery: Delivery placenta: spontaneous Delivery cord: nuchal cord, 3 umbilical vessels Episiotomy: none Delivery laceration: none Anesthesia: none Delivery comments: NICU team called in for PTD @ 31 weeks live born male over intact perineum. CAN X 1 del through. Baby passed to waiting NICU team. Placenta and membrane del complete and intact, 3 vessel cord. 8/9, EBL 200, Wgt 4-13. Pit IVFs Baby to NICU due to GA. Mom remains LDR stable - A at 1 minute: 8 at 5 minutes: 9 Gender: Male (wgt 4-13)
[2017-09-21] MEDS: MOTRIN PO SCH (20:30)
[2017-09-21] MEDS ORDERED: SODIUM CHLORIDE FLUSH SYRINGE 10 ML IV NR (21:00)
[2017-09-21] MEDS ORDERED: DULCOLAX PR PRN (22:00)
[2017-09-22] MEDS: MOTRIN PO SCH ×4 (02:23→23:59)
--- NOTE | 2017-09-22 07:38 | Progress Note ---
Assessment and Plan patient resting, c/o involution pain. encouraged to use motrin as needed. Andrea harris, VSSAF, H&H ordered for 9am, no symptoms of Anemia. Pt reports doing well in NICU. Continue pathway and anticipate d/c home tomorrow. - Patient Problems (1) delivery, delivered Current Visit: Yes Status: Acute (2) Normal spontaneous vaginal delivery Current Visit: No Status: Acute Subjective - Subjective Date of service: 09/22/17 Principal diagnosis: day #1 (<12hrs post delivery) Patient reports: appetite normal, voiding normally, pain well controlled, ambulating normally, no dizzy ambulation, no nauseated [place]: in NICU Objective - Vital Signs Latest vital signs: Vital Signs Temp Pulse Resp BP Pulse Ox 09/22/17 04:20 98.2 F 62 18 90/57 100 09/22/17 02:23 20 09/22/17 00:45 98.4 F 59 L 18 91/56 100 09/21/17 20:30 98.1 F 65 18 96/60 100 09/21/17 08:06 98.0 F Intake and Output 09/21/17 09/21/17 09/22/17 15:59 23:59 07:59 Intake Total 240 240 Output Total 300 300 Balance -60 -60 Intake: Oral 240 240 Output: Urine 300 300 Void 300 300 Other: Total, Intake Amount 120 120 Total, Output Amount 300 300 # Voids Void 1 2 - Exam Breasts: Present: normal Cardiovascular: Present: Regular rate Lungs: Present: Clear to auscultation, Normal air movement Abdomen: Present: normal appearance, soft Vulva: both: normal Uterus: Present: normal, firm, fundal height at umbilicus Extremities: Present: normal
[2017-09-22 08:24] LABS: Hematocrit 28.2 % (30.3-42.9); Hemoglobin 9.1 gm/dl (10.1-14.3)
[2017-09-23] MEDS: MOTRIN PO SCH (03:37)
--- NOTE | 2017-09-23 06:22 | Discharge Summary ---
Providers - Providers Date of Admission: 09/18/17 22:33 Date of discharge: 09/23/17 (pt desires d/c ) Attending physician: SAIMA CORBETT 09/19/17 12:10 Consult to Physician [CONS] Routine Comment: Consulting Provider: NEO ESCOBEDO Physician Instructions: Reason For Exam: 31 weeks/ PTL/ SROM 09/21/17 06:26 Consult to Physician [CONS] Routine Comment: Consulting Provider: TIMOTHY JOHNSTON Physician Instructions: Reason For Exam: PPROM and PTL; Insufficient PNC Primary care physician: SAIMA CORBETT Hospitalization Reason for admission: labor, rupture of membranes Delivery: Episiotomy: none Laceration: none Incision: normal Other procedures: none complications: none Discharge diagnosis: delivery Comfort baby: male (baby remains in NICU stable) Hospital course: pt presented with PPROM and in labor; received 2 doses BMZ; progression of labor Uncomplicated vaginal delivery live born male Pt resting No c/o voiced. Pt will come to OB office and sign tubal consent desires sterilization VSS FF below umb Lochia small Perineum intact Pt asymptomatic anemia Doing well s/p vag delivery P: d/c today with instructions RTO 4 weeks PP care Will nhan tubal once consent is signed. Condition at discharge: Good Disposition: DC-01 TO HOME OR SELFCARE - Discharge Diagnoses (1) delivery, delivered Status: Acute Comment: RTO 4 weeks PP care Plan - Discharge Medications Prescriptions: Ibuprofen [Motrin 800 MG tab] 800 mg PO Q8HR PRN #30 tablet PRN Reason: Pain - Provider Discharge Summary Activity: routine, no sex for 6 weeks, no heavy lifting 4 weeks, no strenuous exercise Diet: routine Instructions: routine Additional instructions: [] Smoking cessation referral if applicable(refer to patient education folder for contact #) [] Refer to [facility] Booklet Call your doctor immediately for: * Fever > 100.5 * Heavy vaginal bleeding ( >1 pad per hour) * Severe persistent headache * Shortness of breath * Reddened, hot, painful area to leg or breast * Drainage or odor from incision. * Keep incision clean and dry at all times and follow doctor's instructions regarding bathing/showering - Follow up plan Follow up: SAIMA CORBETT MD [Primary Care Provider] - 10/21/17 (Congratulations! Please call [phone] to schedule your visit in 4 weeks. Take medication as prescribed. Call with concerns. Tubal cannot be scheduled until consent is signed.)
[2017-09-23 08:06] VITALS: BP 88/56
== END 2017-09-23 11:00 | disposition home or self-care (01) | DRG 775 ==
LOC: TRG 18:36 → LD 22:33 → OB 09-21 20:01
PROVIDERS: ADMIT Obstetrics & Gynecology; ATTEND Obstetrics & Gynecology
PROC: 10E0XZZ Delivery of Products of Conception, External Approach (ICD-10-PCS; principal; 2017-09-21)
DX: O60.14X0 Preterm labor third trimester with preterm delivery third trimester, not applicable or unspecified (principal); Z3A.31 31 weeks gestation of pregnancy; Z37.0 Single live birth; O69.81X0 Labor and delivery complicated by cord around neck, without compression, not applicable or unspecified
CPT/HCPCS: 36415; 76816; 80307; 81001; 83735; 85014; 85018; 85027; 86850; 86900; 86901; 88307; 99406; J0290; J0702; J2590; J3010; J3475; J7120